=== PATIENT | male | born 2000 | race Caucasian/White ===

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

== ENCOUNTER 2021-12-30 21:57 | Emergency (ER) | payer OTHER ==
[2021-12-30 23:03] VITALS: BP 134/66
== END 2021-12-31 00:16 | disposition left against medical advice (07) ==
LOC: ED 21:57
DX: Z53.21 Procedure and treatment not carried out due to patient leaving prior to being seen by health care provider (principal)

== ENCOUNTER 2021-12-31 08:00 | Outpatient (CLI) | payer OTHER ==
--- NOTE | 2022-01-01 14:21 | XRAY Report ---
PROCEDURE: Foot 3 View RT INDICATIONS: PAIN IN RIGHT FOOT TECHNIQUE: 3 views of the foot were acquired. COMPARISON: None FINDINGS: Bones: No fractures or dislocations. No suspicious bony lesions. Soft tissues: No tibiotalar joint effusion. Achilles tendon appears normal. IMPRESSION: Right foot without acute fracture or dislocation. No significant degenerative changes seen. If there is continued clinical concern for pathology or occult fracture, consider follow-up imaging w ith repeat radiographs in 10-14 days and possible advanced imaging (CT, MRI, bone scan) if symptoms p ersist. Reviewed by: Chris Vasquez MD on 01/01/2022 2:19 PM PDT Approved by: Chris Vasquez MD on 01/01/2022 2:19 PM PDT Station ID: [id number]
== END 2021-12-31 23:59 | disposition home or self-care (01) ==
LOC: DI.S 08:00
PROVIDERS: ATTEND Registered Nurse
DX: M79.671 Pain in right foot (principal)